=== PATIENT | female | born 1975 | race Caucasian/White ===

== ENCOUNTER 2019-11-25 07:24 | Inpatient (IN) | payer MEDICARE ==
[2019-11-21 13:15] LABS: BASOPHILS % (AUTO) 1.1 % (0.0-2.0); EOSINOPHILS % (AUTO) 4.7 % (1.0-6.0); HEMATOCRIT 42.3 % (36-46); HEMOGLOBIN 14.3 g/dL (12.0-16.0); LYMPHOCYTES # (AUTO) 1.7 K/uL (1.0-4.8); LYMPHOCYTES % (AUTO) 33.6 % (22.0-44.0); MEAN CORPUSCULAR HEMOGLOBIN 31.8 pg (26.0-34.0); MEAN CORPUSCULAR HGB CONC 33.7 G/dL (31.0-37.0); MEAN CORPUSCULAR VOLUME 94 fL (80-100); MONOCYTES # (AUTO) 0.4 K/uL (0.1-1.0); MONOCYTES % (AUTO) 8.7 % (2.0-9.0); NEUTROPHILS # (AUTO) 2.6 K/uL (1.8-7.7); NEUTROPHILS % (AUTO) 51.9 % (40.0-70.0); PLATELET COUNT (AUTO) 256 K/uL (150-450); RED BLOOD CELL COUNT(AUTO) 4.48 MIL/uL (4.00-5.20); RED CELL DISTRIBUTION WIDTH 12.3 % (11.5-14.5)
[2019-11-21 13:25] LABS: PROTHROMBIN TIME 10.7 SEC (9.4-11.6)
[2019-11-21 13:34] LABS: ALANINE AMINOTRANSFERASE 48 U/L (12-78); ALBUMIN 4.8 g/dL (3.4-5.0); ALKALINE PHOSPHATASE 66 U/L (46-116); ANION GAP 8 mmol/L (8-16); ASPARTATE AMINOTRANSFERASE 39 U/L (15-37); BILIRUBIN,TOTAL 0.5 mg/dL (0.1-1.0); CARBON DIOXIDE 29 mmol/L (22-29); CHLORIDE 103 mmol/L (98-107); CREATININE 0.84 mg/dL (0.60-1.30); GLOMERULAR FILTR. RATE CALC > 60 mL/min (>60); GLUCOSE,RANDOM 72 mg/dL (70-110); SODIUM SERUM 140 mmol/L (136-145); TOTAL PROTEIN, SERUM 7.7 g/dL (6.4-8.2); UREA NITROGEN, BLOOD 17 mg/dL (7-18)
[~2019-11-25] VITALS: Ht 162.6 cm; Wt 70.0 kg
[~2019-11-25 07:24] MED LIST: ACET-2041 PO; CeFAZolin 2 GM/DEXTROSE 50 ML IV ONE; ESCI10TA PO; RINGERS SOLUTION,LACTATED 1,000 ML IV ONE
[2019-11-25] MEDS ORDERED: BUPIVACAINE LIPOSOME/PF 1.3%-13.3MG/ML SUSPENSION 20 ML VIAL INJ ONE (07:30)
[2019-11-25] MEDS ORDERED: MAG HYDROX/AL HYDROX/SIMETH 30 ML SUSP UDCUP PO PRN (07:45)
[2019-11-25] MEDS ORDERED: ZOLPIDEM TARTRATE 10 MG TABLET PO PRN (07:45)
[2019-11-25] MEDS ORDERED: BENZOCAINE/MENTHOL LOZENGE PO PRN (07:45)
[2019-11-25] MEDS ORDERED: DiphenhydrAMINE HCL 50 MG/ML VIAL IVP PRN ×2 (07:45→08:30)
[2019-11-25] MEDS ORDERED: ONDANSETRON HCL 4 MG/2 ML VIAL IVP PRN ×2 (07:45→08:30)
[2019-11-25] MEDS ORDERED: FentaNYL CITRATE-PF 100 MCG/2 ML VIAL IVP PRN (08:30)
[2019-11-25] MEDS ORDERED: MEPERIDINE-PF 25 MG/ML VIAL IVP PRN (08:30)
[2019-11-25] MEDS ORDERED: NALBUPHINE HCL 10 MG/ML VIAL IVP PRN (08:30)
[2019-11-25] MEDS ORDERED: CYCLOBENZAPRINE HCL 10 MG TABLET PO PRN (08:30)
[2019-11-25] MEDS ORDERED: HYDROmorphone 2 MG/ML SYRINGE ONE (10:04)
[2019-11-25] MEDS ORDERED: MEPERIDINE-PF 25 MG/ML VIAL ONE (10:10)
[2019-11-25] MEDS: HYDROmorphone 2 MG/ML SYRINGE IVP PRN ×5 (10:25→21:40)
[2019-11-25 11:20] VITALS: BP 108/63
[2019-11-25] MEDS ORDERED: DEXAMETHASONE SOD PHOS 4 MG/ML VIAL IVP ONE (12:00)
[2019-11-25] MEDS ORDERED: MIDAZOLAM HCL 2 MG/2 ML VIAL IVP ONE (12:00)
[2019-11-25] MEDS ORDERED: ROCURONIUM BROMIDE 10 MG/ML 5 ML VIAL IVP ONE (12:00)
[2019-11-25] MEDS ORDERED: LIDOCAINE/PF 2% 5 ML VIAL INJ ONE (12:00)
[2019-11-25] MEDS ORDERED: FentaNYL CITRATE-PF 250 MCG/5 ML VIAL IVP ONE (12:00)
[2019-11-25] MEDS ORDERED: PROPOFOL 1% 20 ML VIAL IVP ONE (12:00)
[2019-11-25] MEDS ORDERED: KETOROLAC TROMETHAMINE 60 MG/2 ML VIAL IM ONE (12:00)
[2019-11-25] MEDS ORDERED: ONDANSETRON HCL 4 MG/2 ML VIAL IVP ONE (12:00)
[2019-11-25] MEDS ORDERED: 0.9% SODIUM CHLORIDE 10 ML VIAL IVP ONE (12:00)
[2019-11-25] MEDS ORDERED: PHENYLEPHRINE HCL 10 MG/ML VIAL IVP ONE (12:00)
[2019-11-25] MEDS: DOCUSATE SODIUM 100 MG CAPSULE PO SCH ×2 (14:37→21:33)
[2019-11-25 15:30] VITALS: BP 110/65
[2019-11-25] MEDS ORDERED: KETOROLAC TROMETHAMINE 30 MG/ML VIAL IVP SCH (16:00)
[2019-11-25] MEDS: ACETAMINOPHEN 1000 MG/ISO-OSM 100 ML IV SCH (18:13)
[2019-11-25] MEDS ORDERED: OXYGEN THERAPY IH SCH (20:00)
[2019-11-25] MEDS: OXYGEN THERAPY IH SCH (20:00)
[2019-11-25] MEDS: KETOROLAC TROMETHAMINE 30 MG/ML VIAL IVP SCH (23:11)
[2019-11-25 23:26] VITALS: BP 109/67
[2019-11-26] MEDS: ACETAMINOPHEN 1000 MG/ISO-OSM 100 ML IV SCH ×2 (01:29→09:16)
[2019-11-26] MEDS: KETOROLAC TROMETHAMINE 30 MG/ML VIAL IVP SCH ×4 (04:51→21:51)
[2019-11-26 05:00] VITALS: BP 99/54
[2019-11-26 07:10] VITALS: BP 104/62
[2019-11-26] MEDS: HYDROmorphone 2 MG/ML SYRINGE IVP PRN ×2 (07:21→14:10)
[2019-11-26] MEDS: OXYGEN THERAPY IH SCH ×2 (08:00→20:00)
[2019-11-26] MEDS ORDERED: SODIUM CHLORIDE 0.9% 500 ML IV ONE (09:09)
[2019-11-26] MEDS: DOCUSATE SODIUM 100 MG CAPSULE PO SCH ×2 (09:16→21:51)
[2019-11-26 11:45] VITALS: BP 96/51
[2019-11-26 15:35] VITALS: BP 108/58
[2019-11-26 21:51] VITALS: BP 110/61
[2019-11-26 23:30] VITALS: BP 106/59
[2019-11-27 03:30] VITALS: BP 99/52
[2019-11-27] MEDS: KETOROLAC TROMETHAMINE 30 MG/ML VIAL IVP SCH ×2 (03:30→09:34)
[2019-11-27] MEDS: HYDROmorphone 2 MG/ML SYRINGE IVP PRN (06:19)
[2019-11-27 07:22] VITALS: BP 102/56
[2019-11-27] MEDS: OXYGEN THERAPY IH SCH (08:00)
[2019-11-27] MEDS: DOCUSATE SODIUM 100 MG CAPSULE PO SCH (09:34)
== END 2019-11-27 11:51 | disposition home or self-care (01) | DRG 460 ==
LOC: 4E 07:24
PROVIDERS: ADMIT Orthopaedic Surgery Orthopaedic Surgery of the Spine; ATTEND Orthopaedic Surgery Orthopaedic Surgery of the Spine
PROC: 0SB40ZZ Excision of Lumbosacral Disc, Open Approach (ICD-10-PCS; 2019-11-25)
PROC: 0SG30A0 Fusion of Lumbosacral Joint with Interbody Fusion Device, Anterior Approach, Anterior Column, Open Approach (ICD-10-PCS; principal; 2019-11-25 09:15)
DX: M48.07 Spinal stenosis, lumbosacral region (principal)
CPT/HCPCS: 87081; 97161; C9290; G0378; J0131; J0690; J1100; J1170; J1885; J2175; J2250; J2370; J2405; J2704; J3010; J3490; J7040; J7120